=== PATIENT | female | born 1995 | race Caucasian/White ===

== ENCOUNTER 2022-02-06 20:04 | Inpatient (IN) ==
[~2022-02-06 20:04] MED LIST: *HR* Nalbuphine 10 MG/ML AMPUL IV PRN; Azithromycin 500 MG in 0.9 % Sodium Chloride 250 ML IVPB PRN; Famotidine 20 MG/2 ML VIAL IVP PRN; Lidocaine 1% 20 ML MDV INFILT PRN; Metoclopramide 10 MG/2 ML VIAL IVP PRN; Naloxone 0.4 MG/ML INJ IVP PRN; Ondansetron 4 MG/2 ML VIAL IVP PRN
[2022-02-06] MEDS ORDERED: Ringers Solution, Lactated 1,000 ML IVC SCH (20:15)
[2022-02-06 20:20] LABS: Basophils % 0.2 %; Eosinophils # 0.1 K/mcL (0.0-0.6); Eosinophils % 1.1 %; Hematocrit 34.3 % (35.3-44.9); Hemoglobin 11.5 g/dL (11.5-15.4); Immature Granulocytes % 0.5 % (0-4); Lymphocytes # 2.6 K/mcL (0.6-4.6); Lymphocytes % 26.3 %; Mean Corpuscular HGB Conc 33.5 g/dL (31.6-35.5); Mean Corpuscular Volume 89.6 fL (83.0-100.0); Mean Platelet Volume 11.2 fL (9.4-12.4); Monocytes # 0.8 K/mcL (0.0-1.3); Monocytes % 8.6 %; Neutrophils # 6.2 K/mcL (1.6-8.9); Platelet Count 253 K/mcL (140-400); Red Blood Count 3.83 M/mcL (3.82-4.97); Red Cell Distribution Width 13.4 % (11.5-14.5); Segmented Neutrophils % 63.3 %; White Blood Count 9.8 K/mcL (4.3-11.1)
[2022-02-06 20:36] LABS: Amphetamine Screen,Urine Negative ng/mL (Cutoff=1000); Barbiturate Screen,Urine Negative ng/mL (Cutoff=200); Benzodiazepines Screen,Urine Negative ng/mL (Cutoff=200); Cannabinoid Screen,Urine Negative ng/mL (Cutoff = 50); Cocaine Screen,Urine Negative ng/mL (Cutoff= 300); Opiate Screen,Urine Negative ng/mL (Cutoff=300); Phencyclidine Screen,Urine Negative ng/mL (Cutoff=25)
[2022-02-06] MEDS ORDERED: EPHEDrine 50 MG/ML VIAL IVP PRN (20:55)
[2022-02-06] MEDS ORDERED: Epidural Premix (fent/bupiv) 110 ML EP SCH (21:00)
[2022-02-06 21:03] LABS: Influenza A PCR Negative (Negative); Influenza B PCR Negative (Negative); Resp. Syncytial Virus PCR Negative (Negative)
[2022-02-06 21:05] LABS: SARS-CoV-2 by PCR (In House) Negative (Negative)
[2022-02-07] MEDS ORDERED: Oxytocin 30 UNIT/503 ML BAG IVC ONE (00:13)
[2022-02-07] MEDS ORDERED: Oxytocin 30 UNIT/503 ML BAG IVC SCH (04:18)
[2022-02-07] MEDS ORDERED: Lanolin 7 G OINT...G. TP PRN (04:18)
[2022-02-07] MEDS ORDERED: Benzocaine/Menthol 56 GM AEROSOL SPRAY TP PRN (04:18)
[2022-02-07] MEDS ORDERED: Ondansetron ODT 4 MG TAB.RAPDIS SL PRN (04:18)
[2022-02-07] MEDS: Acetaminophen 325 MG TABLET PO SCH ×4 (05:51→23:03)
[2022-02-07] MEDS: Ibuprofen 600 MG TABLET PO SCH ×4 (05:51→23:03)
[2022-02-07] MEDS: Prenatal Vit/FA 1 EACH TABLET PO SCH (08:27)
[2022-02-08 04:05] LABS: Basophils # 0.1 K/mcL (0.0-0.2); Basophils % 0.4 %; Eosinophils # 0.2 K/mcL (0.0-0.6); Eosinophils % 1.4 %; Hemoglobin 11.1 g/dL (11.5-15.4); Immature Granulocytes % 0.3 % (0-4); Lymphocytes # 3.3 K/mcL (0.6-4.6); Lymphocytes % 26.2 %; Mean Corpuscular HGB Conc 32.6 g/dL (31.6-35.5); Mean Corpuscular Hemoglobin 29.1 pg (28.0-33.3); Monocytes # 0.9 K/mcL (0.0-1.3); Monocytes % 7.2 %; Platelet Count 233 K/mcL (140-400); Red Blood Count 3.82 M/mcL (3.82-4.97); Red Cell Distribution Width 13.7 % (11.5-14.5); Segmented Neutrophils % 64.5 %; White Blood Count 12.5 K/mcL (4.3-11.1)
[2022-02-08] MEDS: Acetaminophen 325 MG TABLET PO SCH ×2 (05:25→11:34)
[2022-02-08] MEDS: Ibuprofen 600 MG TABLET PO SCH ×2 (05:25→11:34)
[2022-02-08] MEDS: Prenatal Vit/FA 1 EACH TABLET PO SCH (08:14)
[2022-02-08 19:29] VITALS: BP 110/62; PULSE 74; TEMP 97.9; O2SAT 98
== END 2022-02-08 13:55 | disposition home or self-care (01) | DRG 807 ==
LOC: 1NENULAB → 1NENUOBS 02-07 04:17
PROVIDERS: ADMIT Advanced Practice Midwife; ATTEND Advanced Practice Midwife